=== PATIENT | male | born 1960 | race Caucasian/White ===

== ENCOUNTER → 2016-06-14 | Outpatient (CLI) | payer OTHER ==
--- NOTE | 2016-06-14 07:35 | CT ---
EXAMINATION TYPE: CT soft tissue neck w con DATE OF EXAM: 06/14/2016 7:21 AM COMPARISON: NONE HISTORY: Globus sensation. CT DLP: 546.6 mGycm Automated exposure control for dose reduction was used. CONTRAST: CT scan of the neck is performed following with IV Contrast, patient injected with 100 mL of Omnipaqu e 300. Axial images are obtained, coronal and sagittal reformatted images are reviewed. FINDINGS: Visualized portions of the lungs are clear. Visualized intracranial structures are normal. Visualized portions of the paranasal sinuses and mastoids are clear. Vertebral body height and alignment are maintained. Atlantoaxial relationships are normal. There is d iffuse disc space loss with relative sparing of the C2-3 level. There is uncovertebral joint disease throughout the cervical spine most marked at C4-5 and C5-6. The facets are unremarkable. The major salivary glands are normal. The parapharyngeal soft tissues are normal. The base of the tongue is prominent. There is asymmetry i n the soft tissues of the oropharynx with prominence of the right-sided soft tissues. The laryngeal s oft tissues are normal. The thyroid gland enhances homogeneously. There is some shotty cervical adenopathy no pathologically enlarged lymph nodes are seen. IMPRESSION: 1. Asymmetry in the oropharynx. Direct visualization would be suggested. 2. Degenerative changes within the cervical spine.
== END | disposition home or self-care (01) ==
LOC: RADCTMAIN 06:54
PROVIDERS: ATTEND Internal Medicine
DX: J39.2 Other diseases of pharynx (principal)
CPT/HCPCS: 70491; Q9967

== ENCOUNTER → 2016-07-17 | Outpatient (CLI) | payer OTHER ==
--- NOTE | 2016-07-17 11:51 | FL ---
Modified barium swallow. HISTORY: Dysphagia. Modified barium swallow was performed with the department of speech pathology. The patient was prese nted with various consistencies of barium. There is no evidence for aspiration or penetration. Full report is to follow from the department of speech pathology. Impression: Normal study.
== END | disposition home or self-care (01) ==
LOC: RADFLMAIN 11:00
PROVIDERS: ATTEND Otolaryngology Facial Plastic Surgery
DX: R13.10 Dysphagia, unspecified (principal)
CPT/HCPCS: 74230

== ENCOUNTER → 2016-07-19 | Outpatient (CLI) | payer OTHER ==
--- NOTE | 2016-07-19 10:16 | FL ---
ESOPHOGRAM. HISTORY: Dysphagia Esophagram was performed per the air contrast technique. The patient swallowed barium and effervesce nt crystals without difficulty or delay. Esophageal peristalsis and motility appear to be within normal limits. There is no evidence for filling defect, mass or diverticulum. Small reducible sliding type hiatal hernia is detected. Subsequently single contrast cervical esophagram was performed demonstrates penetration to the level of the vocal cords. No evidence for aspiration. IMPRESSION: 1.Small reducible sliding type hiatal hernia is detected. 2. Penetration as discussed.
== END ==
LOC: RADFLWHC 09:20
PROVIDERS: ATTEND Otolaryngology Facial Plastic Surgery
DX: K44.9 Diaphragmatic hernia without obstruction or gangrene (principal)
CPT/HCPCS: 74220

== ENCOUNTER → 2019-04-29 | Outpatient (CLI) | payer OTHER ==
--- NOTE | 2019-04-29 15:52 | MR ---
EXAMINATION TYPE: MR knee RT wo con DATE OF EXAM: 04/29/2019 COMPARISON: None HISTORY: 58-year-old male with right knee pain TECHNIQUE: Multiplanar, multisequence imaging of the right knee is performed without IV contrast. FINDINGS: ACL, PCL, MCL, and LCL complex are intact. Moderate thickness focal cartilage fissuring along the weightbearing aspect of the medial femoral con dyle measuring up to 4 x 5 mm. Additional scattered mild superficial cartilage irregularity along the weightbearing aspect. There is oblique signal along the posterior horn of the medial meniscus extending to the junction wit h the meniscal body best seen on sagittal series. Mild thinning of lateral compartment articular cartilage. Minimal inner margin fraying of the lateral meniscal body. Severe cartilage loss along the superior half of the mid patella with underlying degenerative subchon dral bony signal changes. Moderate diffuse thinning of articular cartilage throughout the remainder o f the medial and lateral patellar facets and mild along the trochlear facets. There is a 1.3 x 1.2 x 0.8 cm ovoid loose body in the anterior knee joint. Small knee joint effusion without Glynn's cyst. Extensor mechanism is intact. There is some mild edema within the suprapatellar fat pad. Normal popliteal artery anatomy and muscle bulk. No suspicious bone marrow replacement. IMPRESSION: 1. Oblique tear posterior horn of the medial meniscus. 2. Moderate thickness focal chondral injury measuring 5 x 4 mm along the mid weightbearing aspect of the medial femoral condyle. 3. Moderate overall patellofemoral compartment osteoarthrosis with full-thickness cartilage loss michel g the superior half of the mid patella. 4. A 1.3 cm ovoid loose body within the anterior knee joint with small knee joint effusion. 5. Some edema within the suprapatellar fat pad can be seen with fat pad impingement syndrome. Clinica lly correlate.
== END | disposition home or self-care (01) ==
LOC: RADMRIMAIN 07:04
PROVIDERS: ATTEND Orthopaedic Surgery
DX: S83.241A Other tear of medial meniscus, current injury, right knee, initial encounter (principal); M17.11 Unilateral primary osteoarthritis, right knee

== ENCOUNTER 2019-05-23 09:34 | Day surgery (SDC) | payer OTHER ==
[2019-05-21 12:28] VITALS: BMI 29.8
[~2019-05-23 09:34] MED LIST: ALPRAZolam 0.25 MG TAB PO PRN; ALPRAZolam 0.5 MG TAB PO PRN; ASPIRIN 325 MG TAB PO STA; ATORVASTATIN 80 MG TAB PO STA; NITROGLYCERIN SL TABS 0.4 MG TAB SUBLINGUAL PRN; SODIUM CHLORIDE 0.9% 1,000 ML in EMPTY BAG 1 BAG IV ONE
[2019-05-23 10:42] VITALS: RESP 16; TEMP 98.2
[2019-05-23] MEDS ORDERED: SODIUM CHLORIDE 0.9% 1,000 ML IV ONE (10:42)
[2019-05-23] MEDS ORDERED: LIDOCAINE 1% INJ 10MG/ML (20 ML MDV) ONE (11:39)
[2019-05-23] MEDS ORDERED: VERAPAMIL 2.5 MG/ML 2 ML AMP ONE (11:39)
[2019-05-23] MEDS ORDERED: HEPARIN SODIUM 1,000 UN/ML (10ML VL) ONE (11:39)
[2019-05-23] MEDS ORDERED: fentaNYL (PF) 50 MCG/ML 2 ML AMP ONE (11:48)
[2019-05-23] MEDS ORDERED: fentaNYL (PF) 50 MCG/ML 2 ML AMP IVP ONE (12:06)
[2019-05-23] MEDS ORDERED: LIDOCAINE 1% INJ 10MG/ML (20 ML MDV) SQ ONE ×2 (12:11→12:13)
[2019-05-23] MEDS ORDERED: VERAPAMIL SYRINGE (5 MG/10 ML) INTRAARTER ONE (12:15)
[2019-05-23] MEDS ORDERED: HEPARIN SODIUM 1,000 UN/ML (10ML VL) IV ONE (12:22)
[2019-05-23] MEDS ORDERED: IOPAMIDOL-370 125ML BTL INJ ONE (12:28)
[2019-05-23] MEDS ORDERED: RX INFO: IV CONTRAST WAS GIVEN 1 EACH MISC MISCELLANE PRN (12:40)
[2019-05-23] MEDS ORDERED: SODIUM CHLORIDE 0.9% 1,000 ML IV SCH (12:45)
--- NOTE | 2019-05-23 13:16 | CC ---
CARDIAC CATHETERIZATION REPORT Mr. Daily is a 58-year-old male with known history of hypertension and hyperlipidemia who is scheduled to undergo knee surgery, underwent a myocardial perfusion imaging because of his decreased exercise tolerance was found to have reversible defect involving the inferior wall. In view of that, recommendation was made regarding cardiac catheterization. The procedure as well as the risks and complications were discussed with the patient who is in full understanding and agreement. PROCEDURE: Patient was brought to tender labor in a fasting semi-sedated state. After receiving fentanyl and Benadryl and achieving moderate conscious sedated state. Using Xylocaine anesthesia in the Seldinger technique, 6-Armenian sheath was introduced in the right radial artery. Selective right and left coronary angiography performed using 5-Armenian 3.5 bend right and left Duke catheter. Multiple views of the coronary artery including hemiaxial views obtained. Following that, 5-Armenian tight pigtail catheter was introduced in the left ventricle and a 30-degree FIGUEROA view of the left ventricle was obtained. Following that, catheter and sheath were removed. Hemostasis was obtained with deployment of a TR band. There was no immediate complication. Patient is returned to his room in stable condition. Of note, the patient received 5000 units of intravenous heparin as well as intra-arterial verapamil. FINDING: LEFT MAIN: This is a short size vessel, large in caliber. Bifurcating in left circumflex, left anterior descending artery. Left main coronary artery has no evidence of obstructive coronary artery disease. LEFT ANTERIOR DESCENDING ARTERY: This is a large-sized vessel, tapers down the distal third, giving rise to 2 diagonal branches of small to moderate caliber. The left anterior descending artery in the proximal and mid segment has mild intimal disease of 20% without any evidence of high-grade stenosis. LEFT CIRCUMFLEX: This is a nondominant vessel giving rise to 2 obtuse marginal branches. The second one is larger in caliber. The left circumflex second obtuse marginal branch has mild plaque of 10% to 20% without any evidence of high-grade stenosis. RIGHT CORONARY ARTERY: This is a large dominant vessel bifurcating distally to the PDA and posterolateral segment and branches. The right PDA reaches toward the inferoapical wall. The right coronary artery in mid segment has mild plaquing with mild aneurysmal formation of about 10% to 20%. The rest of the vessel has no high-grade stenosis. LEFT VENTRICULOGRAM: Left ventriculogram was performed in 30-degree FIGUEROA view and revealed normal left ventricular size and systolic function. Ejection fraction is 60%. There was no significant mitral regurgitation. HEMODYNAMICS: There was no gradient across the aortic valve. The left ventricular end-diastolic pressure was 20 to 24 mmHg. CONCLUSION: 1. Mild triple vessel coronary artery disease. 2. Normal left ventricular size and systolic function. RECOMMENDATION: In view of finding anatomy, I recommend to continue medical therapy. The patient is stable to proceed with scheduled surgical intervention. Those findings and recommendation were discussed with the patient and he is full understanding and agreement. Duration of procedure is 21 minutes. MMODL / IJN: [id number] /
--- NOTE | 2019-05-23 13:22 | LTR ---
May 23, 2019 Re: Alex Morochosmith Dear Dr. Mejia: I had the opportunity to perform cardiac catheterization on Mr. Daily at [facility] on the 23 of May and a full copy of the procedure note will be forwarded to you. In brief, he was found to have mild triple-vessel coronary artery disease with a preserved left ventricular size and systolic function. Based on those findings, I see no contraindication to his upcoming surgical intervention. Thank you again for allowing me the opportunity to participate in his care. Please feel free to call for any questions. Sincerely yours, MD ANTONIO GironL / DANIELLEN: [id number] /
[2019-05-23 16:41] VITALS: BP 128/76; PULSE 56
[2019-05-23] MEDS ORDERED: NON FORMULARY DRUG (Simvastatin 40 MG) PO SCH (21:00)
[2019-05-23] MEDS ORDERED: ATENOLOL 25 MG TAB PO SCH (21:00)
[2019-05-24] MEDS ORDERED: LISINOPRIL-HCTZ 20-12.5 MG 1 EACH TAB PO SCH (09:00)
[2019-05-24] MEDS ORDERED: ASPIRIN 325 MG TAB PO SCH (09:00)
== END 2019-05-23 17:22 | disposition home or self-care (01) ==
LOC: CATHCVL 09:34
PROVIDERS: ATTEND Internal Medicine Interventional Cardiology
DX: I25.10 Atherosclerotic heart disease of native coronary artery without angina pectoris (principal); I48.0 Paroxysmal atrial fibrillation; I10 Essential (primary) hypertension; E78.2 Mixed hyperlipidemia; Z79.899 Other long term (current) drug therapy
CPT/HCPCS: 93458; C1769; C1894; J2001; J3010; J1644; Q9967

== ENCOUNTER → 2019-06-17 | Outpatient (CLI) | payer OTHER ==
[2019-06-17 10:39] LABS: Basophils # (A) 0.1 k/uL (0-0.2); Basophils % (A) 1 %; Eosinophils # (A) 0.2 k/uL (0-0.7); Eosinophils % (A) 4 %; HCT 46.2 % (39.0-53.0); HGB 15.5 gm/dL (13.0-17.5); Lymphocytes # (A) 1.6 k/uL (1.0-4.8); Lymphocytes % (A) 25 %; MCH 29.1 pg (25.0-35.0); MCHC 33.4 g/dL (31.0-37.0); MCV 86.9 fL (80.0-100.0); Mean Platelet Volume 8.8; Monocytes # (A) 0.3 k/uL (0-1.0); Monocytes % (A) 5 %; Neutrophils # (A) 3.9 k/uL (1.3-7.7); Neutrophils % (A) 62 %; Platelet Count 224 k/uL (150-450); RBC 5.32 m/uL (4.30-5.90); RDW 12.4 % (11.5-15.5); WBC 6.2 k/uL (3.8-10.6)
[2019-06-17 10:46] LABS: Potassium 4.2 mmol/L (3.5-5.1)
== END | disposition home or self-care (01) ==
LOC: LABPAT 09:45
PROVIDERS: ATTEND Orthopaedic Surgery
DX: Z01.812 Encounter for preprocedural laboratory examination (principal); M23.92 Unspecified internal derangement of left knee
CPT/HCPCS: 36415; 80051; 85025

== ENCOUNTER 2019-07-03 09:39 | Day surgery (SDC) | payer OTHER ==
[2019-07-01 12:00] VITALS: BMI 31.4
--- NOTE | 2019-07-02 13:32 | HP ---
HISTORY AND PHYSICAL Surgery is scheduled for 07/03/2019. Alex Daily is a 58-year-old patient who is seen with progressive right knee pain. We discussed options for treatment. He elected to proceed with arthroscopy. Consent was obtained. Cardiac clearance was obtained by Dr. Pichardo. PAST MEDICAL HISTORY: Hypertension, hyperlipidemia, cardiovascular disease. PAST SURGICAL HISTORY: Right shoulder arthroscopy, cardiac catheterization. DAILY MEDICATIONS: 1. Atenolol. 2. Aspirin. 3. Lisinopril/hydrochlorothiazide. 4. Simvastatin. ALLERGIES: None. SOCIAL HISTORY: Denies tobacco use. PHYSICAL EXAMINATION: Physical evaluation of right knee: Range of motion 0 to 120. Mild effusion. Tenderness medial joint line. Positive medial Ramin's. Ligaments stable. Hip rotation without pain. Distal neurovascular exam intact. Radiographs of the right knee revealed moderate osteoarthritic changes. Right knee MRI revealed medial meniscal tear, osteoarthritis and loose bodies. IMPRESSION: 1. Internal derangement right knee with medial meniscal tear. 2. Right knee osteoarthritis. 3. Hyperlipidemia. 4. Hypertension. PLAN: Right knee arthroscopy with partial meniscectomy, partial synovectomy and debridement. MMODL / IJN: [id number] /
[~2019-07-03 09:39] MED LIST changes: -ALPRAZolam 0.25 MG TAB PO PRN; -ALPRAZolam 0.5 MG TAB PO PRN; -ASPIRIN 325 MG TAB PO STA; -ATORVASTATIN 80 MG TAB PO STA; +DEXAMETHASONE SOD PHOSPHATE 10 MG/ML 1 ML VIAL IV ONE; +HYDROmorphone 0.5 MG/0.5 ML SYRINGE IVP PRN; +LACTATED RINGERS 1,000 ML IV SCH; +LIDOCAINE 1% (10MG/ML) FOR IV START INTRADERMA PRN; +MIDAZOLAM 2 MG/2 ML VIAL IV PRN; -NITROGLYCERIN SL TABS 0.4 MG TAB SUBLINGUAL PRN; +ONDANSETRON 4 MG/2 ML VIAL IVP ONE; -SODIUM CHLORIDE 0.9% 1,000 ML in EMPTY BAG 1 BAG IV ONE; +fentaNYL (PF) 50 MCG/ML 2 ML AMP IVP PRN
[2019-07-03 10:08] VITALS: RESP 16
[2019-07-03] MEDS ORDERED: MIDAZOLAM 2 MG/2 ML VIAL ONE (11:16)
[2019-07-03] MEDS ORDERED: fentaNYL (PF) 50 MCG/ML 2 ML AMP ONE (11:16)
[2019-07-03] MEDS ORDERED: ePHEDrine SULFATE/0.9% NACL/PF 50 MG/5 ML SYRINGE IV ONE (11:16)
[2019-07-03] MEDS ORDERED: PROPOFOL 10 MG/ML 20 ML VIAL IV ONE (11:16)
[2019-07-03] MEDS ORDERED: LIDOCAINE 1% INJ 10MG/ML (20 ML MDV) ONE (11:16)
[2019-07-03] MEDS ORDERED: SUCCINYLCHOLINE CHLORIDE 100 MG/5 ML SYR IV ONE (11:16)
[2019-07-03 12:10] VITALS: TEMP 97.2
--- NOTE | 2019-07-03 12:14 | P.OP ---
Date of Procedure: 07/03/19 Preoperative Diagnosis: Internal derangement right knee Postoperative Diagnosis: 1. Tear medial meniscus right knee 2. Grade 2 chondromalacia medial femoral condyle right knee 3. Reactive synovitis medial, lateral and suprapatellar compartments right knee Procedure(s) Performed: 1. Arthroscopic partial medial meniscectomy right knee 2. Arthroscopic chondroplasty medial femoral condyle right knee 3. Arthroscopic partial synovectomy medial, lateral and suprapatellar compartments right knee Anesthesia: ILIANAA, local Surgeon: Scottie Lyn Estimated Blood Loss (ml): 7 Pathology: none sent Condition: stable Disposition: PACU Indications for Procedure: 58-year-old patient seen with progressive right knee pain. After treatment options were discussed, he elected to proceed with arthroscopy. Operative Findings: See description of procedure Description of Procedure: Patient was taken to the operative suite. Patient underwent a general anesthetic by the department of anesthesia. Patient was given preoperative a ntibiotics. The right lower extremity was placed in a well-padded arthroscopic leg kingsley. The right leg was prepped and draped in the normal sterile orthopedic fashion. A lateral parapatellar and suprapatellar incision was made. Trochars were inserted. Arthroscopy was initiated. Suprapatellar pouch revealed diffuse thick reactive synovitis. The patellofemoral joint appeared articulate congruently. There was grade 1 chondromalacia of the patella with no osteochondral tears present. The scope was guided into the medial gutter. No loose bodies or plica were identified. The scope was then guided into the medial compartment. A medial parapatellar incision was made. Trocar inserted followed by probe. There was a complex tear involving the posterior horn medial meniscus. There were grade 2 chondromalacia changes of the medial femoral condyle was small osteochondral flap tears. There was thick reactive synovitis anteriorly. I performed a partial medial meniscectomy. I performed a chondroplasty of the medial femoral condyle. I performed a partial synovectomy decompressing the reactive synovitis. The residual meniscus was stable. There was good decompression of the synovitis. The residual osteochondral surface of the medial femoral condyle was stable. Scope and probe were then guided into the intercondylar notch. Cruciates were identified, probed and found to be stable. The scope and probe were then guided into lateral compartment. There was some superficial fraying of the posterior horn and midbody lateral meniscus. There was no significant chondromalacia. There was thick reactive synovitis anteriorly. I debrided that superficial fraying with a motorized shaver. I performed a partial synovectomy decompressing reactive synovitis. There was good decompression of the synovitis. The scope was in guided back into the suprapatellar compartment. I introduced a motorized shaver into the suprapatellar compartment. I debrided some piecemeal fragments of meniscus I encountered. I performed a partial synovectomy. The shaver was removed. There was good decompression of synovitis. I took one more look on the entire knee, no residual debris. Instruments were now removed from the joint. The joint was infiltrated with .25% Marcaine. Steri-Strips were applied to the portal sites. Sterile dressings were applied. The patient was placed into a ERNESTO hose. No tourniquet was utilized. The patient was awakened, transferred to a bed and taken to recovery stable satisfactory condition.
[2019-07-03] MEDS ORDERED: HYDROcodone/APAP 5-325MG 1 EACH TAB PO ONE (12:55)
[2019-07-03 13:14] VITALS: BP 127/80; PULSE 62
== END 2019-07-03 13:30 | disposition home or self-care (01) ==
LOC: OR 09:39
PROVIDERS: ATTEND Orthopaedic Surgery
DX: S83.241A Other tear of medial meniscus, current injury, right knee, initial encounter (principal); X58.XXXA Exposure to other specified factors, initial encounter; M65.861 Other synovitis and tenosynovitis, right lower leg; M22.41 Chondromalacia patellae, right knee; M17.11 Unilateral primary osteoarthritis, right knee; I67.1 Cerebral aneurysm, nonruptured; I25.10 Atherosclerotic heart disease of native coronary artery without angina pectoris; I10 Essential (primary) hypertension; I48.91 Unspecified atrial fibrillation; K21.9 Gastro-esophageal reflux disease without esophagitis; E78.5 Hyperlipidemia, unspecified; Z79.82 Long term (current) use of aspirin; Z79.899 Other long term (current) drug therapy
CPT/HCPCS: 29881; 29876; J2250; J1100; J0690; J2405; J2001; J3010; J0330; J2704

== ENCOUNTER → 2019-12-03 | Outpatient (CLI) | payer OTHER ==
--- NOTE | 2019-12-03 19:54 | MR ---
EXAMINATION TYPE: MR angio head wo con DATE OF EXAM: 12/03/2019 COMPARISON: Prior MRA [place] December 01, 2013 HISTORY: Aneurysm follow up TECHNIQUE: Time of flight images focusing on the [place] of [place] were performed without contrast.. 2-D and 3-D postprocessing imaging is performed on MRI scanner. FINDINGS: There is codominant vertebrobasilar system. Vertebral arteries are patent to the basilar ju nction. Hypoplastic bilateral posterior communicating arteries. No significant focal stenosis or aneu rysmal change. There is redemonstration of hypoplastic right anterior cerebral artery with eccentric aneurysm near j unction of the left A1 and A2 segment measuring 4.6 x 3.8 mm axial image 121, I do not appreciate sig nificant change in my measurements from the 2014 study. Tortuous course to bilateral distal internal carotid arteries redemonstrated. Hypoplastic or nonvisualized anterior communicating artery. 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
== END | disposition home or self-care (01) ==
LOC: RADMRIMAIN 17:50
PROVIDERS: ATTEND Internal Medicine
DX: I67.1 Cerebral aneurysm, nonruptured (principal)
CPT/HCPCS: 70544

== ENCOUNTER → 2019-12-04 | Outpatient (CLI) | payer OTHER ==
--- NOTE | 2019-12-04 16:13 | CONS ---
CONSULTATION DATE OF SERVICE: 12/04/2019 A 59-year-old gentleman who has been evaluated in the sleep Center for possible obstructive sleep apnea-hypopnea syndrome. HISTORY OF PRESENT ILLNESS SLEEP WAKE EVALUATION: Patient's usual sleep schedule is from midnight until 7:30 a.m. Usually no problems with falling asleep. No TV in the bedroom. He sleeps by himself in different positions. He snores. During the day, he takes naps at 1:00 p.m. and sometimes at 7:00 p.m. Usually feel refreshed after nap. Does not see any dreams during nap. He usually wakes up from sleep around 2 times without nocturia at night. No history of hypnagogic hallucinations, sleep paralysis or cataplexy. PAST MEDICAL HISTORY: Positive for episodes of paroxysmal atrial fibrillation multiple times. He is preparing for possible cardiac ablation procedure. Hypertension, hyperlipidemia, arthritis. PAST SURGICAL HISTORY: Right knee arthroscopic surgery. SOCIAL HISTORY: Negative for smoking or alcohol consumption, occasional. MEDICATIONS: Atenolol, simvastatin, lisinopril, hydrochlorothiazide, aspirin, flecainide. REVIEW OF SYSTEMS: Sleepiness during the day. PHYSICAL EXAM: gentleman without distress. BP 150/87, HR 75, RR 16, height 5 feet 9 1/2 inches, weight 235.6 pounds, body mass index 34.2, temperature 98.9. Oxygen saturation at room air 96%. Oropharynx extremely low position of soft palate, Mallampati IV, wide neck 18 1/2 inches in circumference. Head: Normocephalic, atraumatic. Neck: Supple, thyroid gland is not enlarged, no JVP is noted, no lymphadenopathy noted. ENT: No foci of infection. Eyes: WALLACE, external eye movements are normal, conjunctivae are pink. Lungs: Clear to auscultation bilaterally. Heart: S1, S2 can be heard, no gallops, rubs, or murmurs. Abdomen: Obese. Extremities: No cyanosis, clubbing, or edema, peripheral pulses are palpable. Cranial Nerves: II to XII are intact. [employer]NAGER: There are no gross sensory or motor deficits, DTRS 2+ bilaterally. Musculoskeletal: Muscle strength is symmetrical. IMPRESSION: 1. Snoring, awakenings from sleep, sleepiness during the day. Patient takes naps up to 2 times a day, extremely low position of soft palate, Mallampati 4, wide neck 18 1/2 inches in circumference, obstructive sleep apnea-hypopnea syndrome. 2. Obesity with BMI 34.2. 3. History of episodes of atrial fibrillation. 4. Hypertension. 5. Hyperlipidemia. 6. History of arthritis. 7. Status post right knee arthroscopic surgery. PLAN: 1. Polysomnography for evaluation of patient's breathing during sleep. 2. CPAP/BiPAP titration if sleep study confirms obstructive sleep apnea-hypopnea syndrome. 3. Preferable position during sleep on the side. 4. No driving if patient feels any sleepiness. 5. I will see patient for follow up visit to explain results of testing and following plan. Thank you very much for referring this patient for consultation. Thor Millan MD, PhD, FAASM Diplomat of [employer] Manual Writer of [facility] [place] MMODL / DANIELLEN: [id number] /
== END | disposition home or self-care (01) ==
LOC: SLEEP 15:00
PROVIDERS: ATTEND Internal Medicine
DX: G47.33 Obstructive sleep apnea (adult) (pediatric) (principal); E66.9 Obesity, unspecified; I10 Essential (primary) hypertension; E78.5 Hyperlipidemia, unspecified; Z98.890 Other specified postprocedural states; Z68.34 Body mass index [BMI] 34.0-34.9, adult; Z86.79 Personal history of other diseases of the circulatory system
CPT/HCPCS: 99211

== ENCOUNTER → 2021-10-03 | Outpatient (CLI) | payer OTHER ==
[2021-10-03 18:03] LABS: Basophils # (A) 0.07 X 10*3/uL (0.00-0.10); Basophils % (A) 1.2 %; Eosinophils # (A) 0.21 X 10*3/uL (0.04-0.35); Eosinophils % (A) 3.7 %; HCT 47.2 % (39.6-50.0); Immature Grans, Automated 0.2 %; MCH 28.3 pg (27.0-32.0); MCHC 31.8 g/dL (32.0-37.0); MCV 89.1 fL (80.0-97.0); Mean Platelet Volume 12.3 fL (9.5-12.2); Monocytes # (A) 0.48 X 10*3/uL (0.20-1.00); Monocytes % (A) 8.5 %; NRBC Per 100 WBC 0 /100 WBCS (0.0-0.0); Neutrophils # (A) 3.05 X 10*3/uL (1.80-7.70); Neutrophils % (A) 54.4 %; Platelet Count 234 X 10*3/uL (140-440); RDW 12.1 % (11.5-14.5); WBC 5.62 X 10*3/uL (4.50-10.00)
[2021-10-03 18:07] LABS: Anion Gap 9.4 mmol/L (10.00-18.00); Carbon Dioxide 26.6 mmol/L (20.0-27.5); Potassium 4.5 mmol/L (3.5-5.5)
== END | disposition home or self-care (01) ==
LOC: LABPAT 10:11
PROVIDERS: ATTEND Orthopaedic Surgery
DX: Z01.818 Encounter for other preprocedural examination (principal); M23.91 Unspecified internal derangement of right knee; R94.31 Abnormal electrocardiogram [ECG] [EKG]; R00.1 Bradycardia, unspecified
CPT/HCPCS: 80051; 85025; 93005

== ENCOUNTER → 2021-10-13 | Day surgery (SDC) | payer OTHER ==
--- NOTE | 2021-10-12 15:54 | HP ---
HISTORY AND PHYSICAL REASON FOR ADMISSION: Surgery scheduled 10/13/2021 HISTORY OF PRESENT ILLNESS: Alex Daily is a 61-year-old patient seen with progressive right knee pain. We discussed options for treatment. He elected to proceed with right knee arthroscopy. Consent obtained. PAST MEDICAL HISTORY: Hypertension. PAST SURGICAL HISTORY: Shoulder arthroscopy. MEDICATIONS: Atenolol, lisinopril/hydrochlorothiazide, simvastatin. ALLERGIES: None. SOCIAL HISTORY: He denies tobacco use. PHYSICAL EVALUATION OF THE RIGHT KNEE: Range of motion zero to 130. Mild effusion. Tenderness medial joint line. Positive medial Ramin's. Ligaments stable. Hip rotation without pain. Distal neurovascular exam intact. RADIOGRAPHS: Right knee radiographs revealed moderate osteoarthritis. MRI right knee revealed chondromalacia and fat pad impingement. IMPRESSION: 1. Internal derangement right knee with osteochondral tear and impingement. 2. Hypertension. 3. Hyperlipidemia. PLAN: Right knee arthroscopy with chondroplasty, partial synovectomy and debridement. Surgery scheduled for 10/13/2021. MMODL / IJN: [id number] /
[~2021-10-13] MED LIST changes: -DEXAMETHASONE SOD PHOSPHATE 10 MG/ML 1 ML VIAL IV ONE; +DEXAMETHASONE SOD PHOSPHATE 4 MG/ML 1 ML VIAL IV ONE; -LIDOCAINE 1% (10MG/ML) FOR IV START INTRADERMA PRN; -MIDAZOLAM 2 MG/2 ML VIAL IV PRN; -fentaNYL (PF) 50 MCG/ML 2 ML AMP IVP PRN
== END ==
LOC: OR 09:36
PROVIDERS: ATTEND Orthopaedic Surgery
DX: M23.91 Unspecified internal derangement of right knee (principal); Z53.9 Procedure and treatment not carried out, unspecified reason; I10 Essential (primary) hypertension; Z79.899 Other long term (current) drug therapy; Z98.890 Other specified postprocedural states; Z79.82 Long term (current) use of aspirin; E78.2 Mixed hyperlipidemia; Z87.891 Personal history of nicotine dependence; I48.0 Paroxysmal atrial fibrillation